=== PATIENT | male | born 1995 ===

== ENCOUNTER 2018-02-23 10:18 | Emergency (ER) | payer OTHER ==
--- NOTE | 2018-02-23 10:38 | ED PDOC ---
Arrival/HPI - General Time Seen by Provider: 02/23/18 10:38 Historian: Patient - History of Present Illness Narrative History of Present Illness (Text): 02/23/18 10:38 This 23 yo male whoe denies PMH presents to this ED c/o right foot pain x 1 day. Patient stated an object fell on his right foot yesterday at work. Patient denies other somatic complains. Time/Duration: Other (1 day) Quality: Aching Context: Work Past Medical History - Provider Review Nursing Documentation Reviewed: Yes Family/Social History - Physician Review Nursing Documentation Reviewed: Yes Family/Social History: Other (noncontributory) Allergies/Home Meds Allergies/Adverse Reactions: Allergies No Known Allergies Allergy (Verified 02/23/18 10:36) Review of Systems - Review of Systems Constitutional: Normal. absent: Fatigue, Weight Change, Fevers, Night Sweats Eyes: Normal ENT: Normal Respiratory: Normal. absent: SOB, Cough Cardiovascular: Normal. absent: Chest Pain Gastrointestinal: Normal. absent: Abdominal Pain, Nausea, Vomiting Genitourinary Male: Normal. absent: Dysuria, Frequency, Hematuria Musculoskeletal: Other (see hpi) Skin: Normal Neurological: Normal Endocrine: Normal Hemo/Lymphatic: Normal Psychiatric: Normal Physical Exam Vital Signs Temp Pulse Resp BP Pulse Ox 02/23/18 10:36 98.3 F 62 17 143/65 98 Temperature: Afebrile Blood Pressure: Normal Pulse: Regular Respiratory Rate: Normal Appearance: Positive for: Well-Appearing, Non-Toxic, Comfortable Pain Distress: None Mental Status: Positive for: Alert and Oriented X 3 - Systems Exam Head: Present: Atraumatic, Normocephalic Pupils: Present: PERRL Extroacular Muscles: Present: EOMI Conjunctiva: Present: Normal Mouth: Present: Moist Mucous Membranes Neck: Present: Normal Range of Motion Respiratory/Chest: Present: Clear to Auscultation, Good Air Exchange. No: Respiratory Distress, Accessory Muscle Use Cardiovascular: Present: Regular Rate and Rhythm, Normal S1, S2. No: Murmurs Abdomen: No: Tenderness, Distention, Peritoneal Signs Back: Present: Normal Inspection Upper Extremity: Present: Normal Inspection. No: Cyanosis, Edema Lower Extremity: Present: Normal Inspection, NORMAL PULSES, Normal ROM, Tenderness (Mild tenderness over right 2nd and 3rd metatarsal area.), Neurovascularly Intact, Capillary Refill < 2 s. No: Edema, CALF TENDERNESS Neurological: Present: GCS=15, CN II-XII Intact, Speech Normal, Motor Func Grossly Intact, Normal Sensory Function, Normal Cerebellar Funct, Gait Normal, Memory Normal Skin: Present: Warm, Dry, Normal Color. No: Rashes Psychiatric: Present: Alert, Oriented x 3, Normal Insight, Normal Concentration Medical Decision Making ED Course and Treatment: 02/23/18 11:46 Re-evaluation. Patient feels better. Discussed results and plan with patient who expresses understanding. All questions answered and there is agreement with the plan to discharge home with instructions. Patient stable for discharge. Return if symptoms persist or worsen. Re-evaluation Time: 11:46 Reassessment Condition: Re-examined, Improved - RAD Interpretation Radiology Orders: 02/23/18 10:42 FOOT RIGHT 3 VIEWS ROUTINE [RAD] Stat - Medication Orders Current Medication Orders: Discontinued Medications Ibuprofen (Motrin Tab) 600 mg PO STAT STA Stop: 02/23/18 10:44 Last Admin: 02/23/18 10:48 Dose: 600 mg MAR Pain/Vitals Document 02/23/18 10:48 GMD (Rec: 02/23/18 10:49 GMD [id number]) Pain Reassessment Is This A Pain ReAssessment? No Presence of Pain Presence of Pain Yes Pain Scale Used Pain Scale Used Numeric Location Left, Right or Bilateral Right Pain Location Body Site Foot Intensity 5 Scale Used Numeric Disposition/Present on Arrival - Present on Arrival Any Indicators Present on Arrival: No History of DVT/PE: No History of Uncontrolled Diabetes: No Urinary Catheter: No History of Decub. Ulcer: No - Disposition Have Diagnosis and Disposition been Completed?: Yes Diagnosis: Foot contusion Disposition: HOME/ ROUTINE Disposition Time: 11:47 Patient Plan: Discharge Patient Problems: Current Active Problems Problem Status Onset Foot contusion Acute Condition: GOOD Discharge Instructions (ExitCare): Contusion (DC) Additional Instructions: Call private doctor for follow up visit in 1-2 days. Take medication as instructed with food. Keep foot elevated, ice, rest, crutches, anjali bandage for at least 7 days. Remove anjali bandage at bedtime. Return to emergency if pain worsen. Prescriptions: Famotidine [Pepcid] 40 mg PO DAILY #10 tablet Naproxen 500 mg PO BID PRN #14 tablet PRN Reason: Pain, Severe (8-10) Referrals: PCP,NO [Primary Care Provider] - Follow up with primary Charlene Bradford MD [Staff Provider] - Follow up with primary [facility] [Outside] - Follow up with primary Forms: WORK NOTE
[2018-02-23 10:43] VITALS: RESP 17; TEMP 98.3
[2018-02-23 12:01] VITALS: BP 139/66; PULSE 58; O2SAT 99
--- NOTE | 2018-02-23 12:01 | RAD ---
Date of service: 02/23/2018 PROCEDURE: Right Foot Radiographs. HISTORY: pain s/p trauma COMPARISON: None. FINDINGS: BONES: Normal. No fracture. JOINTS: Normal. SOFT TISSUES: Normal. OTHER FINDINGS: None. IMPRESSION: Normal right foot radiographs.
== END 2018-02-23 12:00 | disposition home or self-care (01) ==
LOC: ED 10:18
DX: S90.31XA Contusion of right foot, initial encounter (principal); W20.8XXA Other cause of strike by thrown, projected or falling object, initial encounter; Y99.0 Civilian activity done for income or pay

== ENCOUNTER 2018-04-24 12:53 | Emergency (ER) | payer MEDICAID, OTHER ==
[2018-04-24 13:08] VITALS: BMI 24.4
[2018-04-24] MEDS ORDERED: Albuterol-Ipratrop 3 mg / 0.5 (3 ml) UD IH STA (13:08)
--- NOTE | 2018-04-24 13:12 | ED PDOC ---
Arrival/HPI - General Chief Complaint: Shortness Of Breath Time Seen by Provider: 04/24/18 13:00 Historian: Patient - History of Present Illness Time/Duration: Other (Yesterday) Symptom Onset: Gradual Symptom Course: Unchanged Severity Level: Mild Activities at Onset: Rest Associated Symptoms (Text): 04/24/18 13:10 Patient complains of a mild nonproductive cough since yesterday. He has developed shortness of breath and wheezing overnight. No sputum production. No URI symptoms. No fever. No chest pain. No history of asthma. Past Medical History - Provider Review Nursing Documentation Reviewed: Yes - Psychiatric Hx Substance Use: No Family/Social History - Physician Review Nursing Documentation Reviewed: Yes Family/Social History: Unknown Family HX Smoking Status: Never Smoked Hx Alcohol Use: Yes Frequency of alcohol use: Socially Hx Substance Use: No Allergies/Home Meds Allergies/Adverse Reactions: Allergies No Known Allergies Allergy (Verified 02/23/18 10:36) Review of Systems - Physician Review All systems were reviewed & negative as marked: Yes - Review of Systems Constitutional: absent: Fatigue, Fevers Respiratory: SOB, Cough, Wheezing. absent: Sputum Cardiovascular: absent: Chest Pain, Palpitations, Syncope Gastrointestinal: absent: Abdominal Pain, Nausea, Vomiting Neurological: absent: Headache, Dizziness Physical Exam Temperature: Afebrile Blood Pressure: Normal Pulse: Regular Respiratory Rate: Normal Appearance: Positive for: Well-Appearing, Non-Toxic, Uncomfortable Pain Distress: None Mental Status: Positive for: Alert and Oriented X 3 - Systems Exam Head: Present: Atraumatic, Normocephalic Pupils: Present: PERRL Extroacular Muscles: Present: EOMI Conjunctiva: Present: Normal Ears: Present: NORMAL TM, Normal Canal. No: Erythema, TM Bulging Mouth: Present: Moist Mucous Membranes Pharnyx: No: ERYTHEMA, EXUDATE, TONSILS ENLARGED Nose (Internal): Present: Normal Inspection Neck: Present: Normal Range of Motion Respiratory/Chest: Present: Wheezes, Decreased Breath Sounds. No: Respiratory Distress, Accessory Muscle Use, Rales, Retracting, Rhonchi, Tachypneic, Tender to Palpation Cardiovascular: Present: Regular Rate and Rhythm, Normal S1, S2. No: Murmurs Abdomen: No: Tenderness, Distention, Peritoneal Signs Neurological: Present: GCS=15, CN II-XII Intact, Speech Normal Skin: Present: Warm, Dry, Normal Color. No: Rashes Psychiatric: Present: Alert, Oriented x 3, Normal Insight, Normal Concentration Medical Decision Making ED Course and Treatment: 04/24/18 13:26 Impression: 23 year old male presents to the emergency department for mild unproductive cough since yesterday. Plan: -- X-Ray of chest, 2 views (PA/LAT) -- Duoneb 3mg/ 0.5 mg (3ml) -- Reassess and disposition Prior Visits: Notes and results from previous visits were reviewed. Patient was last seen in the emergency department on 02/23/18 c/o right foot pain x 1 day. Patient was discharged home, given instructions for care, directed to follow up with private doctor, and told to return to emergency department if pain worsened. Progress Notes: X-Ray of chest reviewed by radiologist, shows: Dictator : Sparkle Salgado MD Report Date : 04/24/2018 14:14:45 FINDINGS: LINES AND TUBES: None. LUNG AND PLEURA: The lungs are well inflated and clear. No pleural effusion or pneumothorax. HEART AND MEDIASTINUM: The heart is not enlarged. The hilar and mediastinal contours are within normal limits. SKELETAL STRUCTURES: The bony structures are within normal limits for the patient's age. VISUALIZED UPPER ABDOMEN: Normal. OTHER FINDINGS: None. IMPRESSION: No active pulmonary disease. 04/24/18 14:31 Wheezing has resolved post treatment. Patient is feeling markedly better. - RAD Interpretation Radiology Orders: 04/24/18 13:08 CHEST TWO VIEWS (PA/LAT) [RAD] Stat Sub Plant Manager: Radiologist - Medication Orders Current Medication Orders: Albuterol/Ipratropium (Duoneb 3 Mg/0.5 Mg (3 Ml) Ud) 3 ml IH ONCE STA Stop: 04/24/18 13:09 - Scribe Statement The provider has reviewed the documentation as recorded by the Scribe Hanny Avitia All medical record entries made by the Scribe were at my direction and personally dictated by me. I have reviewed the chart and agree that the record accurately reflects my personal performance of the history, physical exam, medical decision making, and the department course for this patient. I have also personally directed, reviewed, and agree with the discharge instructions and disposition. Disposition/Present on Arrival - Present on Arrival Any Indicators Present on Arrival: No History of DVT/PE: No History of Uncontrolled Diabetes: No Urinary Catheter: No History of Decub. Ulcer: No History Surgical Site Infection Following: None - Disposition Have Diagnosis and Disposition been Completed?: Yes Diagnosis: Asthmatic bronchitis Disposition: HOME/ ROUTINE Disposition Time: 14:31 Patient Plan: Discharge Patient Problems: Current Active Problems Problem Status Onset Asthmatic bronchitis Acute Condition: IMPROVED Discharge Instructions (ExitCare): Acute Bronchitis, Adult (DC), Wheezing Prescriptions: Prednisone [Deltasone] 20 mg PO DAILY #5 tablet Benzonatate [Tessalon Perles] 100 mg PO Q8 #30 sgl Albuterol HFA [Ventolin HFA 90 mcg/actuation (8 g)] 2 puff IH [id number] #1 puff Referrals: PCP,NO [Primary Care Provider] - Follow up with primary Forms: [facility] (Bel[place]ian), WORK NOTE
[2018-04-24 13:32] VITALS: RESP 20; TEMP 99.1; O2SAT 98
--- NOTE | 2018-04-24 14:16 | RAD ---
HISTORY: Cough COMPARISON: No prior. TECHNIQUE: Chest PA and lateral FINDINGS: LINES AND TUBES: None. LUNG AND PLEURA: The lungs are well inflated and clear. No pleural effusion or pneumothorax. HEART AND MEDIASTINUM: The heart is not enlarged. The hilar and mediastinal contours are within normal limits. SKELETAL STRUCTURES: The bony structures are within normal limits for the patient's age. VISUALIZED UPPER ABDOMEN: Normal. OTHER FINDINGS: None. IMPRESSION: No active pulmonary disease.
[2018-04-24 15:17] VITALS: BP 138/80; PULSE 90
--- NOTE | 2018-04-24 16:24 | CARD ---
APPROVED REPORT Date of service: 04/24/2018 EKG Measurement Heart [id number] CO [id number] <Conclusion> Sinus tachycardia Otherwise normal ECG
== END 2018-04-24 15:00 | disposition home or self-care (01) ==
LOC: ED 12:53
DX: J45.909 Unspecified asthma, uncomplicated (principal)